=== PATIENT | male | born 1995 | race Caucasian/White ===

== ENCOUNTER 2018-05-29 08:32 | Emergency (ER) | payer OTHER, SELFPAY ==
[2018-05-29 08:46] VITALS: BP 131/76; PULSE 81; RESP 16; TEMP 36.7; O2SAT 95
--- NOTE | 2018-05-29 09:16 | ED.GENADUL_ITS ---
Discharge Plan Disposition Patient Disposition: HOME Condition: Stable Discharge Details Chief Complaint: Sorethroat Clinical Impression: Strep pharyngitis Primary Care Provider: Rosa,Local ED Provider: Nai Hargrove Home Meds and New Rx's Prescriptions: Continued omeprazole 40 mg Capsule,Delayed Release(Dr/Ec) 40 mg PO DAILY RF: 0 ibuprofen [IBU-200] 200 mg Tablet 400 mg PO QID PRNRF: 0 Discharge Instructions Instructions: Strep Throat (ED), Upper Respiratory Infection (ED) Additional Instructions: Alternate tylenol and motrin as needed and directed for pain or fever. Continue to drink plenty of fluids and follow a soft diet. Follow up with your primary doctor in 2 days for re-evaluation. Return immediately to the emergency department with any worsening or new concerning symptoms. Stand Alone Forms: Work Release Discharge Data Discharge Physician: Nai Hargrove Medical Decision Making 22-year-old male who presents for sore throat, runny nose, ear pain, mild cough for the past 2 days. Had an episode of vomiting 3 days ago but not since 2 days ago. Main complaint is sore throat. Vitals within normal limits. Patient appears nontoxic. He is speaking in full sentences, without drooling, trismus. He has posterior pharyngeal erythema with green postnasal drainage but no exudates, tonsillar abscess. Lungs clear to auscultation. No hepatosplenomegaly. Rapid strep positive. Influenza negative. Discussed with patient that I do not see any exam findings consistent with mono, but with his other viral symptoms, he also may have a URI along with strep. Offered patient oral antibiotics or Bicillin injection and he would prefer the injection. Although he has no significant pharyngeal edema, history of tonsillectomy, due to his significant pain, will give a dose of Decadron p.o. He is instructed to continue to push fluids, alternate Tylenol and Motrin, follow-up with his primary care doctor and to return here at any time if worse. HPI General Mode of arrival: ambulatory . Date/Time Provider Initiated Documentation: 05/29/18 09:04 . Limitations to Documentation: no limitations . Information obtained by: patient . HPI Narrative: Pt is a 22yo M who presents to the ED w/ a c/o vomiting, hot and cold chills, sore throat, rhinorrhea, ear pain x 3 days. Patient states he vomited mainly a few times 3 days ago but not for the past 2 days. Patient states his sore throat started 2 days ago and now he has pain swallowing. Patient admits to a mild cough this morning with yellow sputum. He also admits to bilateral ear pain and occasional runny nose. 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 He states he did not receive a flu shot this year. He states he did not take his temperature. He last took Motrin at 5 AM this morning. Related Data Home Medications Medication Instructions Recorded Confirmed ibuprofen [IBU-200] 400 mg PO QID PRN 05/29/18 05/29/18 omeprazole 40 mg PO DAILY 05/29/18 05/29/18 Allergies Allergy/AdvReac Type Severity Reaction Status Date / Time clonazepam [From Klonopin] Allergy Skin Rash Unverified 05/29/18 08:53 General Stated Complaint: Sorethroat KATIE: 4 Review of Systems Review of Systems All systems reviewed & are unremarkable except as noted in HPI and below Constitutional Reports as per HPI, Reports chills, Reports fever(s) and Reports malaise Eyes Denies blurry vision ENT Denies dizziness, Reports sore throat and Denies throat swelling Cardiovascular Denies chest pain and Denies dyspnea Respiratory Reports cough and Denies dyspnea Gastrointestinal Denies abdominal pain, Denies diarrhea and Denies vomiting Genitourinary Denies hematuria and Denies dysuria Musculoskeletal Denies back pain and Denies numbness Integumentary/Breasts Denies lesions and Denies rash Neurologic Denies dizziness, Denies focal weakness and Denies numbness Allergic/Immunologic Denies throat swelling [facility] Medical History GERD (gastroesophageal reflux disease) (Chronic) Surgical History History of hernia repair (Chronic) History of tonsillectomy (Chronic) Social History Smoking and Tabacco status: Never alcohol intake: current alcohol intake frequency: holidays/special occasions only substance use type: does not use Exam Const General: cooperative and healthy appearing Orientation: alert and awake [facility] Head: normal to inspection Ears: hearing grossly normal bilaterally, external ears normal and TM's normal bilaterally General nose exam: external nose normal Face and sinus: normal facial exam Mouth: oral mucosae normal Teeth and gingiva: dentition normal Throat: uvula midline, no peritonsillar masses, posterior oropharynx abnormal erythema; no cobblstoning, no exudates and no foreign body, postnasal drainage (greenish yellow) and tonsils absent Eyes General: appearance normal, both eyes and all related structures Eyelids: eyelids normal EOM: EOM intact bilaterally Neck Neck: normal visual inspection Lymphatic: no lymphadenopathy noted Chest Chest: normal inspection of the chest Resp Effort & Inspection: normal respiratory effort and able to speak in complete sentences Auscultation: clear to auscultation bilaterally Cardio Rate: regular rate Rhythm: regular rhythm GI Inspection: normal to inspection Palpation: soft, not firm, no guarding, no hepatosplenomegaly, no masses and nontender Auscultation: normal bowel sounds Skin General skin exam: no rashes or lesions noted Neuro General: alert and awake Cognition: normal cognition Speech: speech normal Gait: normal gait Motor: muscle tone normal throughout Sensory Exam: no sensory deficits noted Extrem General: normal to inspection, full ROM, normal capillary refill and no edema Psych Appearance: grossly normal Mental Status: mental status grossly normal Speech and Movement: speech and movement normal Affect: normal affect Thought Process: normal Course Vital Signs Temperature 98.1 F 05/29/18 08:46 Pulse 81 05/29/18 08:46 Respiratory Rate 16 05/29/18 08:46 Blood Pressure 131/76 05/29/18 08:46 Pulse Oximetry 95 05/29/18 08:46 Temperature 98.1 F 05/29/18 08:46 Temperature Source Temporal Artery Scan 05/29/18 08:46 Pulse 81 05/29/18 08:46 Respiratory Rate 16 05/29/18 08:46 Respiratory Effort Non-Labored 05/29/18 08:50 Blood Pressure 131/76 05/29/18 08:46 Blood Pressure Position Sitting 05/29/18 08:46 Pulse Oximetry 95 05/29/18 08:46 Oxygen Delivery Method Room Air 05/29/18 08:46 Oxygen Flow Rate 0 05/29/18 08:46 Pain Level 8 05/29/18 08:46 Lab/Test Results Lab/Test Results: POC Strep Test-[facility](Rapid) Start: 05/29/18 08:45 Freq: .Rapid Strep Test Status: Active Protocol: Document 05/29/18 08:50 SGL (Rec: 05/29/18 08:50 SGL [id number]) Strep test-[facility](Rapid)-POC POC-Strep test-[facility] (Rapid) Positive POC-Strep test-[facility] (Rapid) Positive
[2018-05-29] MEDS: Dexamethasone 10 MG/ML VIAL PO (10:07)
[2018-05-29 10:19] VITALS: BP 128/67; PULSE 78; RESP 16; TEMP 36.6; O2SAT 96
== END 2018-05-29 10:18 | disposition home or self-care (01) ==
PROVIDERS: Emergency Provider Physician Assistant
DX: J02.0 Streptococcal pharyngitis (principal)
CPT/HCPCS: 87449; 87880; 96372; 99284; 99283; J0561; J1100